=== PATIENT | female | born 1990 | race American Indian/Alaskan Native ===

== ENCOUNTER 2018-03-03 15:18 | Emergency (ER) | payer OTHER, BC ==
[2018-03-03] MEDS ORDERED: FLEXERIL PO ONE (16:39)
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
[2018-03-03] MEDS ORDERED: TYLENOL PO ONE (16:40)
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
[2018-03-03 19:01] VITALS: BP 113/68
== END 2018-03-03 19:13 | disposition home or self-care (01) ==
LOC: ED 15:18
DX: S16.1XXA Strain of muscle, fascia and tendon at neck level, initial encounter (principal); M54.5 Low back pain; M79.1 Myalgia; V89.2XXA Person injured in unspecified motor-vehicle accident, traffic, initial encounter; Y93.89 Activity, other specified; Y92.89 Other specified places as the place of occurrence of the external cause; Y99.8 Other external cause status
CPT/HCPCS: 36415; 72040; 76805; 84702; 99285